=== PATIENT | male | born 1995 | race African-American/Black ===

== ENCOUNTER 2020-09-22 19:54 | Emergency (ER) | payer BC ==
[~2020-09-22] VITALS: Ht 177.8 cm; Wt 79.4 kg
[2020-09-22 21:10] VITALS: BP 130/70
--- NOTE | 2020-09-22 21:26 | NUR ---
urine collected. sent to lab
[2020-09-22 21:32] LABS: BILIRUBIN,URINE Negative (NEGATIVE); COLOR,URINE YELLOW (YELLOW); LEUKOCYTE ESTERASE ,URINE Negative (NEGATIVE); NITRITE, URINE Negative (NEGATIVE); PROTEIN,URINE Negative (NEGATIVE); UGLUCOSE Negative (NEGATIVE); UROBILINOGEN,URINE 0.2 EU/dL (0.2)
[2020-09-22 22:37] LABS: BACTERIA,URINE None seen /HPF (None Seen); MUCUS,URINE Few /LPF (None Seen); SPERM,URINE Few /HPF (None Seen); SQUAMOUS EPITHELIAL CELL,UR Few /HPF (None Seen); URINE AMORPHOUS URATE Few /HPF (None Seen); WBC,URINE 0-2 /HPF (0-3)
== END 2020-09-22 22:58 | disposition home or self-care (01) ==
LOC: ER 20:21
DX: R31.9 Hematuria, unspecified (principal); Z20.2 Contact with and (suspected) exposure to infections with a predominantly sexual mode of transmission
CPT/HCPCS: 81001; 87491; 87591